=== PATIENT | male | born 1980 | race Two or more races ===

== ENCOUNTER 2019-08-16 14:26 | Emergency (ER) | payer SELFPAY ==
[~2019-08-16] VITALS: Ht 175.3 cm; Wt 74.8 kg
--- NOTE | 2019-08-16 14:26 | NUR ---
ED Nurse Note: Pt brought in by ambulance d/t ALOC. Per EMS, pt was found unconscious on the sidewalk outside of his car 30 minutes prior to arrival. Narcan was administered by EMS intranasal and IVP. Pt A+Ox4 upon arrival, ambulatory. Per pt, he took Kratom and klonopin this morning, and he thinks the klonopin might have been "laced with something else." Pt does not have a prescription for klonopin, but took it from a friend. per EMS, no head trauma. Pt placed on monitored bed.
--- NOTE | 2019-08-16 14:30 | NUR ---
ED Nurse Note: Pt denies SI/HI
[2019-08-16 14:34] VITALS: BP 122/77
[2019-08-16 15:15] LABS: BASOPHILS % (AUTO) 0.8 % (0.0-2.0); EOSINOPHILS % (AUTO) 0.8 % (0.0-3.0); HEMATOCRIT 43.4 % (42.0-52.0); HEMOGLOBIN 14.6 G/DL (14.2-18.0); LYMPHOCYTES % (AUTO) 21.2 % (20.0-45.0); MEAN CORPUSCULAR VOLUME 85 FL (80-99); MONOCYTES % (AUTO) 7.9 % (1.0-10.0); NEUTROPHILS % (AUTO) 69.2 % (45.0-75.0); PLATELET COUNT 326 K/UL (150-450); RED CELL DISTRIBUTION WIDTH 13.4 % (11.6-14.8); WHITE BLOOD COUNT 10.2 K/UL (4.8-10.8)
--- NOTE | 2019-08-16 15:24 | NUR ---
ED Nurse Note: Pt aware of the need for urine sample. Says he cannot void right now, but will try again soon.
[2019-08-16 15:28] LABS: ANION GAP 11 mmol/L (5-15); BLOOD UREA NITROGEN 17 mg/dL (7-18); CALCIUM 9.6 MG/DL (8.5-10.1); CARBON DIOXIDE 26 MMOL/L (21-32); CHLORIDE 102 MMOL/L (98-107); CREATININE 0.9 MG/DL (0.55-1.30); POTASSIUM 3.4 MMOL/L (3.5-5.1); SODIUM 139 MMOL/L (136-145)
[2019-08-16 15:32] LABS: ALANINE AMINOTRANSFERASE 25 U/L (12-78); ALBUMIN 4.4 G/DL (3.4-5.0); ALBUMIN/GLOBULIN RATIO 1.2 (1.0-2.7); ALKALINE PHOSPHATASE 69 U/L (46-116); ASPARTATE AMINO TRANSFERASE 21 U/L (15-37); BILIRUBIN,TOTAL 0.4 MG/DL (0.2-1.0)
--- NOTE | 2019-08-16 15:40 | NUR ---
ED Nurse Note: urine sent to lab
[2019-08-16 16:30] VITALS: BP 125/74
--- NOTE | 2019-08-16 16:33 | Emergency Room Report ---
History of Present Illness General Chief Complaint: Altered Level of Consciousness Present Illness HPI 39-year-old male presents to the emergency department brought by paramedics for altered level of consciousness. The patient was found down and was not breathing. The paramedics gave him 4 mg Narcan intranasally as well as 2 mg IV. Patient is now alert and oriented. Patient states that he mixed [place] which is a synthetic sara-yes-gwrlyzu opioid type drug with a Klonopin this morning. Patient states that he began feeling kind of drowsy more so than usual when taking either of the medications. Patient states this is the first time mixing both. Patient states that he got the Klonopin off of someone he does not know however he did identify the pill on an Internet search and confirmed that it was Klonopin. He reports history of anxiety as well as opiate use. He denies SI or HI. He denies previous psychiatric hospitalizations. He denies taking any other substances. Patient endorses that this was an unintentional event. He denies pain at this time. Allergies: Coded Allergies: No Known Allergies (Unverified , 08/16/19) COVID-19 Screening Contact w/high risk pt: No Recent Travel to affected area: No Experienced COVID-19 symptoms?: No Patient History Past Medical History: see triage record Past Surgical History: none Pertinent Family History: none Social History: Reports: drug use Reviewed Nursing Documentation: PMH: Agreed; PSxH: Agreed Review of Systems All Other Systems: negative except mentioned in HPI Physical Exam Vital Signs Date Time Temp Pulse Resp B/P (MAP) Pulse Ox O2 Delivery O2 Flow Rate FiO2 08/16/19 14:22 98.4 125 16 122/77 (92) 98 Room Air Sp02 EP Interpretation: reviewed, normal General Appearance: no apparent distress, alert, GCS 15, non-toxic Head: normocephalic, atraumatic Eyes: bilateral eye normal inspection, bilateral eye PERRL ENT: hearing grossly normal, normal voice Neck: full range of motion Respiratory: chest non-tender, lungs clear, normal breath sounds, no rhonchi, no respiratory distress, no accessory muscle use, no wheezing, speaking full sentences Cardiovascular #1: regular rate, rhythm, no edema, normal capillary refill, tachycardia Musculoskeletal: back normal, normal range of motion, gait/station normal, non- tender Neurologic: alert, motor strength/tone normal, oriented x3, sensory intact, responsive, speech normal Psychiatric: judgement/insight normal, memory normal, mood/affect normal, no suicidal/homicidal ideation, no delusions Skin: no rash, normal color, normal inspection Medical Decision Making PA Attestation Dr. Lindquist is my supervising Physician whom patient management has been discussed with. Diagnostic Impression: Primary Impression: Altered level of consciousness Additional Impression: Acute drug intoxication Qualified Codes: F19.920 - Other psychoactive substance use, unspecified with intoxication, uncomplicated ER Course 39-year-old male presents to the emergency department brought by paramedics for altered level of consciousness. The patient was found down and was not breathing. The paramedics gave him 4 mg Narcan intranasally as well as 2 mg IV. Patient is now alert and oriented. Patient states that he mixed [place] which is a synthetic plvs-nxi-wbbnsvx opioid type drug with a Klonopin this morning. Patient states that he began feeling kind of drowsy more so than usual when taking either of the medications. Patient states this is the first time mixing both. Patient states that he got the Klonopin off of someone he does not know however he did identify the pill on an Internet search and confirmed that it was Klonopin. He reports history of anxiety as well as opiate use. He denies SI or HI. He denies previous psychiatric hospitalizations. He denies taking any other substances. Patient endorses that this was an unintentional event. He denies pain at this time. Pt is hyperactive, and has a very anxious and restless affect. Ddx considered but are not limited to OD, SI/HI, psychosis, UTI, intoxication, respiratory distress just to name a few. Vital signs: PT. was initially tachycardic which later resolved. remaining VS are WNL, pt. is afebrile H&PE are most consistent with behavioral/mental health issue ORDERS: -CBC, CMP: WNL -UA: negative for infection see results attached. -UDS: Positive only for THC -Salicylates and Acetaminophen - no acute intoxication. ED INTERVENTIONS: - 1 Liter NS Bolus -Zofran 4mg IV Poison control was contacted and their recommendations are observance for minimum of 4 hours and if patient continues to have vital signs that are stable and within normal limits patient can safely be discharged home. Pt. continues to have an uneventful observation period. He is A & O the entire time. No changes in baseline mental status or respiratory decline. This patient will be receiving a prescription for Narcan as he is being identified due to this emergency department visit as having high risk for subsequent opiate overdose DISPOSITION: DISCHARGE: At this time pt. is stable for d/c to home. Will provide printed patient care instructions, and any necessary prescriptions. Care plan and follow up instructions have been discussed with the patient prior to discharge. Labs Test 08/16/19 15:00 08/16/19 15:45 White Blood Count 10.2 K/UL (4.8-10.8) Red Blood Count 5.10 M/UL (4.70-6.10) Hemoglobin 14.6 G/DL (14.2-18.0) Hematocrit 43.4 % (42.0-52.0) Mean Corpuscular Volume 85 FL (80-99) Mean Corpuscular Hemoglobin 28.6 PG (27.0-31.0) Mean Corpuscular Hemoglobin Concent 33.6 G/DL (32.0-36.0) Red Cell Distribution Width 13.4 % (11.6-14.8) Platelet Count 326 K/UL (150-450) Mean Platelet Volume 7.1 FL (6.5-10.1) Neutrophils (%) (Auto) 69.2 % (45.0-75.0) Lymphocytes (%) (Auto) 21.2 % (20.0-45.0) Monocytes (%) (Auto) 7.9 % (1.0-10.0) Eosinophils (%) (Auto) 0.8 % (0.0-3.0) Basophils (%) (Auto) 0.8 % (0.0-2.0) Sodium Level 139 MMOL/L (136-145) Potassium Level 3.4 MMOL/L (3.5-5.1) Chloride Level 102 MMOL/L (98-107) Carbon Dioxide Level 26 MMOL/L (21-32) Anion Gap 11 mmol/L (5-15) Blood Urea Nitrogen 17 mg/dL (7-18) Creatinine 0.9 MG/DL (0.55-1.30) Estimat Glomerular Filtration Rate > 60 mL/min (>60) Glucose Level 159 MG/DL (74-106) Calcium Level 9.6 MG/DL (8.5-10.1) Total Bilirubin 0.4 MG/DL (0.2-1.0) Aspartate Amino Transf (AST/SGOT) 21 U/L (15-37) Alanine Aminotransferase (ALT/SGPT) 25 U/L (12-78) Alkaline Phosphatase 69 U/L (46-116) Total Protein 8.1 G/DL (6.4-8.2) Albumin 4.4 G/DL (3.4-5.0) Globulin 3.7 g/dL Albumin/Globulin Ratio 1.2 (1.0-2.7) Salicylates Level 2.0 ug/mL (2.8-20) Acetaminophen Level < 2 MCG/ML (10-30) Serum Alcohol < 3 mg/dL Urine Opiates Screen Negative (NEGATIVE) Urine Barbiturates Screen Negative (NEGATIVE) Phencyclidine (PCP) Screen Negative (NEGATIVE) Urine Amphetamines Screen Negative (NEGATIVE) Urine Benzodiazepines Screen Negative (NEGATIVE) Urine Cocaine Screen Negative (NEGATIVE) Urine Marijuana (THC) Screen Positive (NEGATIVE) Last Vital Signs Date Time Temp Pulse Resp B/P (MAP) Pulse Ox O2 Delivery O2 Flow Rate FiO2 08/16/19 14:34 125 16 Room Air 08/16/19 14:34 98.4 122/77 98 Status: improved Disposition: HOME, SELF-CARE Condition: Stable Scripts Naloxone HCl (Narcan) 4 Mg [place] 1 SPRAYS NS q2-3 minutes PRN for apnea, #1 UNIT Prov: Sandee Doss 08/16/19 Referrals: NOT CHOSEN IPA/MD,REFERRING (PCP) Patient Instructions: Naloxone nasal spray Additional Instructions: Discontinue use and mixing of herbal drugs and prescription medications. You are being discharged with a prescription for Narcan and this is to be kept with you at all times in the event that a similar episode occurs in the future. Take medications as directed. Follow up with a Primary Care Provider in 3-5 days, even if your symptoms have resolved. --Please review list of primary care clinics, if you do not already have a primary care provider Return sooner to ED if new symptoms occur, or current symptoms become worse. - Please note that this Emergency Department Report was dictated using [employer] technology software, occasionally this can lead to erroneous entry secondary to interpretation by the dictation equipment. Sandee Doss Aug 16, 2019 16:33
--- NOTE | 2019-08-16 17:00 | NUR ---
ED Nurse Note: Called Perez lind to give report. Nurse said she would call back in 10 minutes
[2019-08-16] MEDS ORDERED: NARCAN4 MG NS (18:29)
[2019-08-16 18:30] VITALS: BP 129/79
--- NOTE | 2019-08-16 18:30 | NUR ---
ER DISCHARGE NOTE: Patient is cleared to be discharged per ERMD, pt is aox4, on room air, with stable vital signs. pt was given dc and prescription instructions, pt was able to verbalize understanding, pt id band and iv site removed without complications. pt is able to ambulate with steady gait. pt took all belongings.
== END 2019-08-16 18:30 | disposition home or self-care (01) ==
LOC: EDBD 14:26 → EMR 14:35
DX: R41.82 Altered mental status, unspecified (principal); F19.920 Other psychoactive substance use, unspecified with intoxication, uncomplicated; R00.0 Tachycardia, unspecified
CPT/HCPCS: 36415; 80053; 80307; 85025; 96361; 96374; 99284; G0480; J2405; J7030